=== PATIENT | female | born 1975 | race Caucasian/White ===

== ENCOUNTER → 2017-12-01 | Day surgery (SDC) | payer OTHER ==
[~2017-12-01] VITALS: Ht 162.6 cm; Wt 110.3 kg
[~2017-12-01] MED LIST: *MEPERIDINE 25 MG INJ VIAL PERIprocedural Use ONLY ONE; *diphenhydrAMINE HCL 50 MG/ML VIAL PERIprocedural Use ONLY ONE; *morphine SULFATE 4 MG/ML PERIprocedure ONLY ONE; ACETAMINOPHEN 1000 MG/100 ML 100 ML IV SCH; CHLORHEXIDINE GLUCONATE 2 % 1 PACK (2 CLOTHS) TOPICAL PRN; DEXAMETHASONE SOD PHOS 4 MG/ML VIAL IV ONE; DO NOT ADM ANY ANTICOAGULANT DRUGS PRN; FAMOTIDINE 20 MG/2 ML VIAL ONE; GLYCOPYRROLATE 1 MG/5 ML SYRINGE IV PUSH ONE; IBUP-1129 PO; LACTATED RINGER'S 1000 ML INJ 1,000 ML IV ONE; LACTATED RINGER'S 1000 ML IV PRN; LIDOCAINE 0.5%/EPINEPHrine 1:200,000 SOLN 50 ML VIAL ONE; LIDOCAINE HCL 1% PF 5 ML SYRINGE OTHER ONE; METOPROLOL TARTRATE 25 MG TAB PO PRN; MIDAZOLAM HCL 2 MG/2 ML VIAL ONE; NEOSTIGMINE 5 MG/5 ML SYRINGE IV PUSH ONE; ONDANSETRON HCL 4 MG/2 ML VIAL IV PUSH ONE; ONDANSETRON HCL 4 MG/2 ML VIAL ONE; OXYC1TAB63 PO; POVIDONE IODINE 5% (ANTISEPSIS KIT) 4 APPLICATIONS EACH NARE PRN; PREN29TA PO; PROPOFOL 200 MG/20 ML AMP IV ONE; ROCURONIUM INJ 50 MG/5 ML SYRINGE IV PUSH ONE; SODIUM CHLORID 0.9% 500 ML IV PRN; TIZA4TAB PO; ceFAZolin 2 GM PREMIX 50 ML IV SCH; oxyCODONE/ACETAMINOPHEN 5 MG/325 MG TAB ONE
--- NOTE | 2017-12-01 10:11 | PD.OP ---
cc: Ricci Bass MD Operative Report Date of Surgery: Dec 01, 2017 Preoperative Diagnosis: Chronic cholecystitis Postoperative Diagnosis: Chronic cholecystitis Procedure: Laparoscopic cholecystectomy Anesthesia: General endotracheal Surgeon: Ricci Bass Ecological Technical Officer(s): Leeann Caceres MS 3 Operation and Findings: Operative findings: The patient was found to have a minimally to moderately diseased, slightly thick-walled gallbladder with no adhesions to it. The cystic duct and common bile duct appeared to be grossly normal. No other abnormalities are noted. Operative procedure: The patient was brought to the operating room and after satisfactory general endotracheal anesthesia was obtained, the abdomen was prepped and draped in usual sterile fashion. 0.5% Marcaine with epinephrine was used to infiltrate the skin for local anesthesia. A small incision was made above the umbilicus and a 5 mm trocar was inserted directly into the peritoneal cavity under visualization. The abdomen was then distended to 15 mmHg using carbon dioxide after which the camera was reinserted and visceral injury inspected for, with none being identified. Under direct visualization a 12 port and a 5 port placed in the upper midline. The fundus of the gallbladder was identified grasped and retracted superiorly over the right lobe of the liver. Jefferson's pouch was then grasped and retracted inferiorly and laterally, placing tension on the hepatoduodenal ligament. The cystic duct and cystic artery were dissected free bluntly and once the critical view had been obtained the cystic artery was clipped and then divided near its junction with the gallbladder using the harmonic scalpel. The cystic duct was treated likewise with 2 clips and dividing it near the gallbladder with the harmonic scalpel. The Harmonic was then used to dissect the gallbladder free from the liver bed. He was placed within an Endo Catch bag and brought to the upper midline incision where it was withdrawn without problem. The trocar was reinserted and the gallbladder bed inspected. There is no bleeding noted. The cystic duct and cystic artery stumps are both seen to be intact with no leakage of bile or blood. The remainder of the perineal cavity is once again inspected with no obvious visceral injury. The carbon dioxide was vented as completely as possible in the atmosphere. The ports were removed and the skin defects closed with interrupted 4-0 PDS subcuticular sutures. Steri-Strips were applied the patient was then awakened and taken from the operating room, in satisfactory condition, having tolerated the procedure without problem. Estimated blood loss was less than 10 mL's. The instrument, sponge, and needle counts were reported as being correct 2 at the end of the procedure. Ricci Bass MD Dec 01, 2017 10:11
[2017-12-01 12:38] VITALS: BP 122/76; PULSE 71; RESP 20; TEMP 98; O2SAT 96
== END | disposition home or self-care (01) ==
LOC: HSDC 06:04
PROVIDERS: ATTEND Surgery
DX: K80.10 Calculus of gallbladder with chronic cholecystitis without obstruction (principal); R01.1 Cardiac murmur, unspecified; K52.9 Noninfective gastroenteritis and colitis, unspecified; R10.13 Epigastric pain; F41.9 Anxiety disorder, unspecified; R55 Syncope and collapse; R51 Headache; M54.5 Low back pain; E66.01 Morbid (severe) obesity due to excess calories; Z68.41 Body mass index [BMI] 40.0-44.9, adult; J06.9 Acute upper respiratory infection, unspecified; L50.9 Urticaria, unspecified; J34.89 Other specified disorders of nose and nasal sinuses; J32.9 Chronic sinusitis, unspecified; R21 Rash and other nonspecific skin eruption; R74.0 Nonspecific elevation of levels of transaminase and lactic acid dehydrogenase [LDH]; M53.3 Sacrococcygeal disorders, not elsewhere classified
CPT/HCPCS: 00790; 47562; 88304; J0131; J0690; J1100; J1200; J2175; J2250; J2270; J2405; J2710; J3010; J7120